=== PATIENT | female | born 1950 | race African-American/Black ===

== ENCOUNTER 2016-08-07 11:52 | Emergency (ER) | payer OTHER ==
[2016-08-07 11:59] VITALS: BP 148/79; PULSE 101; TEMP 97.5; BMI 28.3
[2016-08-07] MEDS ORDERED: IBUPROFEN 600 MG TABLET (FP) PO ONE ×2 (12:23→12:33)
--- NOTE | 2016-08-07 12:28 | PDOC ---
History of Present Illness - General Chief Complaint: Injury Stated Complaint: FALL/ HEAD INJURY, LT ELBOW, KNEE BRUISING Time Seen by Provider: 08/07/16 12:15 History Source: Patient Exam Limitations: No Limitations - History of Present Illness Initial Comments: 08/07/16 12:25 65 yr female states she tripped on the sidewalk yesterday and fell injuring left knee and left big toe. Pt states she hit her head on the wall no LOC. Pt saw her PMD yesterday. Pt denies headache no neck or back pain . Pt took tylenol for pain. no history of blood thinners. Occurred: reports: yesterday Severity: reports: mild Pain Location: reports: lower extremity Method of Injury: Yes: fall Modifying Factors: improves with: None Loss of Consciousness: no loss of consciousness Past History - Past Medical History Allergies/Adverse Reactions: Allergies Allergy/AdvReac Type Severity Reaction Status Date / Time Penicillins Allergy Verified 08/07/16 11:55 Hypercholesterolemia: Yes Seizures: Yes - Immunization History Immunization Up to Date: Yes - Psycho/Social/Smoking Cessation Hx Anxiety: No Suicidal Ideation: No Smoking History: Former smoker Have you smoked in the past 12 months: No Information on smoking cessation initiated: No Hx Alcohol Use: No Drug/Substance Use Hx: No Substance Use Type: None Trauma Specific PMHX - Complaint Specific PMHX Arthritis: No Back Injury: No Neck Injury: No Hx Sacro Iliac Joint Dysfunction: No Review of Systems - Review of Systems Able to Perform ROS?: Yes Is the patient limited Polish proficient: No Constitutional: No: Symptoms Reported Musculoskeletal: Yes: Symptoms Reported *Physical Exam - Vital Signs Last Vital Signs Temp Pulse Resp BP Pulse Ox 97.5 F L 101 H 20 148/79 98 08/07/16 11:56 08/07/16 11:56 08/07/16 11:56 08/07/16 11:56 08/07/16 11:56 - Physical Exam General Appearance: Yes: Nourished, Appropriately Dressed HEENT: positive: EOMI, PATI Neck: positive: Supple. negative: Tender Respiratory/Chest: positive: Lungs Clear, Normal Breath Sounds. negative: Chest Tender Cardiovascular: positive: Regular Rhythm, Regular Rate Gastrointestinal/Abdominal: positive: Normal Bowel Sounds, Soft Musculoskeletal: positive: Normal Inspection, Other (left knee with area of erythema to patella) Extremity: positive: Normal Capillary Refill, Tender (left knee with mild tenderness to palpation bony areas, left great toe with erythema, no deformtiy, FROM all joints ) Integumentary: positive: Normal Color, Dry, Warm Neurologic: positive: Fully Oriented, Alert, Normal Mood/Affect, Normal Response , Motor Strength / ED Treatment Course - RADIOLOGY Radiology Studies Ordered: Category Date Time Status FOOT-LEFT [RAD] Stat Radiology 08/07/16 12:24 Ordered KNEE 3 POS-LEFT [RAD] Stat Radiology 08/07/16 12:24 Ordered Medical Decision Making - Medical Decision Making 08/07/16 12:27 cc: trip and fall left knee pain, left toe injury will give motrin and get xray to r/o fx pt is ambulatory no acute distress. 08/07/16 12:42 *DC/Admit/Observation/Transfer Diagnosis at time of Disposition: Toe sprain Qualifiers: Encounter type: initial encounter Qualified Code(s): S93.509A - Unspecified sprain of unspecified toe(s), initial encounter Knee contusion Qualifiers: Encounter type: initial encounter Laterality: left Qualified Code(s): S80.02XA - Contusion of left knee, initial encounter - Discharge Dispostion Disposition: HOME - Referrals Referrals: Hyun Patel MD [Primary Care Provider] - Shlomo Reynolds MD [Staff Physician] - - Patient Instructions Additional Instructions: take motrin (over the counter advil, ibuprofen, motrin) for pain as needed follow with your medical doctor for follow up as needed follow with the orthopedist for follow up if symptoms worsen or persist use the hard sole shoe to ambulate as needed
== END 2016-08-07 13:25 | disposition home or self-care (01) ==
LOC: JERFT 11:52
DX: S93.512A Sprain of interphalangeal joint of left great toe, initial encounter (principal); S80.02XA Contusion of left knee, initial encounter; W01.0XXA Fall on same level from slipping, tripping and stumbling without subsequent striking against object, initial encounter; Y93.89 Activity, other specified; Y92.480 Sidewalk as the place of occurrence of the external cause; Y99.8 Other external cause status
CPT/HCPCS: 73562-TC-LT; 73630-TC-LT; 99281-25

== ENCOUNTER 2017-06-03 08:05 | Day surgery (SDC) | payer OTHER ==
[2017-06-02 09:19] VITALS: BMI 28.0
[~2017-06-03 08:05] MED LIST: ACETAMINOPHEN 325 MG TABLET (FP) PO PRN; CIPROFLOXACIN HCL 0.3% OPHTH 2.5ML BOTTLE OP SCH; CYCLOPENTOLATE HCL 1% OPHTH SOLN 2 ML BOTTLE OP SCH; FLURBIPROFEN 0.03% OPHTH SOLN 2.5 ML BOTTLE OP SCH; PHENYLEPHRINE 2.5% OPHTH SOLN 15 ML BOTTLE OP SCH; TROPICAMIDE 1% OPHTH SOLN 15 ML BOTTLE OP SCH
[2017-06-03] MEDS ORDERED: CYCLOPENTOLATE HCL 1% OPHTH SOLN 2 ML BOTTLE OD ONE ×3 (09:15→09:25)
[2017-06-03] MEDS ORDERED: TROPICAMIDE 1% OPHTH SOLN 15 ML BOTTLE OD ONE ×3 (09:15→09:25)
[2017-06-03] MEDS ORDERED: CIPROFLOXACIN HCL 0.3% OPHTH 2.5ML BOTTLE OD ONE ×3 (09:15→09:25)
[2017-06-03] MEDS ORDERED: PHENYLEPHRINE 2.5% OPHTH SOLN 15 ML BOTTLE OD ONE ×3 (09:15→09:25)
[2017-06-03 09:17] VITALS: TEMP 97.6
[2017-06-03] MEDS ORDERED: PHENYLEPHRINE 2.5% OPHTH SOLN 15 ML BOTTLE ONE (09:18)
[2017-06-03] MEDS ORDERED: CYCLOPENTOLATE HCL 1% OPHTH SOLN 2 ML BOTTLE ONE (09:18)
[2017-06-03] MEDS ORDERED: CIPROFLOXACIN 0.3% EYE DROPS 5 ML BOTTLE ONE (09:18)
[2017-06-03] MEDS ORDERED: TROPICAMIDE 1% OPHTH SOLN 15 ML BOTTLE ONE (09:18)
[2017-06-03] MEDS ORDERED: TETRACAINE 0.5% OPHTH SOLN 2 ML BOTTLE OD ONE (10:55)
[2017-06-03] MEDS ORDERED: LIDOCAINE HCL/PF 2% SDV 5ML VIAL INF ONE (11:15)
[2017-06-03] MEDS ORDERED: BUPIVACAINE HCL/PF 0.75% 10 ML VIAL RB ONE (11:15)
[2017-06-03] MEDS ORDERED: POVIDONE-IODINE 5% OPHTHALMIC PREP 30 ML SOLUTION OD ONE (11:16)
[2017-06-03] MEDS ORDERED: HYALURONATE SODIUM 14 MG/ML DISP.SYRIN IO ONE ×2 (11:25)
[2017-06-03] MEDS ORDERED: TRYPAN BLUE 0.5 ML DISP.SYRIN IO ONE (11:25)
[2017-06-03] MEDS ORDERED: BSS (NA/CA/MG/K) BALANCED SALT SOLUTION OPHTH SOLN 15 ML BOTTLE OD ONE (11:25)
[2017-06-03] MEDS ORDERED: CHONDROITIN SU A/HYALUR SOD 1 KIT IO ONE (11:25)
[2017-06-03] MEDS ORDERED: LIDOCAINE HCL 1% PRESERVATIVE FREE - 30ML VIAL IO ONE (11:25)
[2017-06-03] MEDS ORDERED: EPINEPHrine/PF 1 MG/1 ML (1:1,000) AMPULE IO ONE (11:37)
--- NOTE | 2017-06-03 12:47 | OP ---
DATE OF OPERATION: 06/03/2017 SURGEON: Armando Azul M.D. PREOPERATIVE DIAGNOSIS: Mature cataract, right eye. POSTOPERATIVE DIAGNOSIS: Mature cataract, right eye. OPERATION: Phacoemulsification of right cataract with capsular staining with trypan blue and posterior chamber intraocular lens implantation, the lens used [id number], 11.0 diopters, serial No. [id number]. ANESTHESIA: Peribulbar/modified Van Lint/MAC. COMPLICATIONS: None. PROCEDURE: The patient was brought into the operating room and correctly identified along with the operative site as well as the correct intraocular lens power. She was then given a peribulbar block under sedation with 5 mL of 1-to-1 mixture of 2% lidocaine and 0.75% bupivacaine. Then, 2 mL of the same mixture was given as a modified Van Lint. An eyelid speculum was then placed into the right eye. A completely white cataract was noted. A paracentesis port was created. Intracameral lidocaine was given approximately 0.5 mL. An air bubble was then placed into the anterior chamber, and the capsule stained with trypan blue beneath the air bubble. The trypan blue was then irrigated from the eye using the lidocaine as well as the viscoelastic. A temporal clear corneal wound was created. A continuous circular capsulorrhexis was then successfully performed. The nucleus was then hydro- dissected with BSS. The nucleus seemed to be soft with a significant cortical component noted. The I/A tip was inserted, and a fair amount of the cortex was then removed. However, there was a denser central nucleus was noted and was unable to be aspirated. Viscoat was placed beneath the nucleus to protect the posterior capsule, and using a vertical chopping technique, the nucleus was then disassembled and removed from the eye. The remaining cortical material was then irrigated and aspirated from the eye. Viscoelastic was injected to inflate the capsular bag. The lens was injected into the capsular bag, and viscoelastic was irrigated and aspirated. The eye was filled with BSS, and the wounds stromal hydrated. All wounds were then tested and found to be watertight. The intraocular lens was noted to be well centered and covered by the anterior capsular border. No suture was placed. Topical vancomycin given, and the eye patched and shielded, and the patient discharged from the operating room in a stable condition. ARMANDO AZUL M.D. /[id number] [id number]
[2017-06-03 13:18] VITALS: BP 152/65; PULSE 83
== END 2017-06-03 13:00 | disposition home or self-care (01) ==
LOC: JASU-SURG 08:05
PROVIDERS: ATTEND Ophthalmology
PROC: 08RJ3JZ Replacement of Right Lens with Synthetic Substitute, Percutaneous Approach (ICD-10-PCS; principal; 2017-06-03 11:00)
DX: H25.091 Other age-related incipient cataract, right eye (principal)

== ENCOUNTER 2017-06-24 07:49 | Day surgery (SDC) | payer OTHER ==
[2017-06-23 08:18] VITALS: BMI 28.0
[~2017-06-24 07:49] MED LIST changes: -CIPROFLOXACIN HCL 0.3% OPHTH 2.5ML BOTTLE OP SCH; +EPINEPHrine/PF 1 MG/1 ML (1:1,000) AMPULE IO ONE; -FLURBIPROFEN 0.03% OPHTH SOLN 2.5 ML BOTTLE OP SCH; -PHENYLEPHRINE 2.5% OPHTH SOLN 15 ML BOTTLE OP SCH; -TROPICAMIDE 1% OPHTH SOLN 15 ML BOTTLE OP SCH
[2017-06-24 08:09] VITALS: TEMP 97.8
[2017-06-24] MEDS ORDERED: FLURBIPROFEN 0.03% OPHTH SOLN 2.5 ML BOTTLE ONE (08:23)
[2017-06-24] MEDS ORDERED: TROPICAMIDE 1% OPHTH SOLN 15 ML BOTTLE ONE (08:23)
[2017-06-24] MEDS ORDERED: PHENYLEPHRINE 2.5% OPHTH SOLN 15 ML BOTTLE ONE (08:23)
[2017-06-24] MEDS ORDERED: CIPROFLOXACIN 0.3% EYE DROPS 5 ML BOTTLE ONE (08:23)
[2017-06-24] MEDS ORDERED: CYCLOPENTOLATE HCL 1% OPHTH SOLN 2 ML BOTTLE ONE (08:23)
[2017-06-24] MEDS: CIPROFLOXACIN HCL 0.3% OPHTH 2.5ML BOTTLE OP SCH ×2 (08:30→08:40)
[2017-06-24] MEDS: FLURBIPROFEN 0.03% OPHTH SOLN 2.5 ML BOTTLE OP SCH ×2 (08:30→08:40)
[2017-06-24] MEDS: PHENYLEPHRINE 2.5% OPHTH SOLN 15 ML BOTTLE OP SCH ×2 (08:30→08:40)
[2017-06-24] MEDS: TROPICAMIDE 1% OPHTH SOLN 15 ML BOTTLE OP SCH ×2 (08:30→08:40)
[2017-06-24] MEDS ORDERED: LIDOCAINE HCL/PF 2% SDV 5ML VIAL ONE (09:06)
[2017-06-24] MEDS ORDERED: PROPOFOL 20 ML ONE (09:07)
[2017-06-24] MEDS ORDERED: LIDOCAINE HCL/PF 2% SDV 5ML VIAL INF ONE (09:17)
[2017-06-24] MEDS ORDERED: BUPIVACAINE HCL/PF 0.75% 10 ML VIAL RB ONE (09:17)
[2017-06-24] MEDS ORDERED: POVIDONE-IODINE 5% OPHTHALMIC PREP 30 ML SOLUTION OS ONE (09:19)
[2017-06-24] MEDS ORDERED: HYALURONATE SODIUM 14 MG/ML DISP.SYRIN IO ONE (09:26)
[2017-06-24] MEDS ORDERED: BSS (NA/CA/MG/K) BALANCED SALT SOLUTION OPHTH SOLN 15 ML BOTTLE OS ONE (09:26)
[2017-06-24] MEDS ORDERED: LIDOCAINE HCL 1% PRESERVATIVE FREE - 30ML VIAL IO ONE (09:26)
[2017-06-24] MEDS ORDERED: CHONDROITIN SU A/HYALUR SOD 1 KIT IO ONE ×2 (09:26)
[2017-06-24] MEDS ORDERED: TRYPAN BLUE 0.5 ML DISP.SYRIN IO ONE (09:26)
[2017-06-24] MEDS ORDERED: EPINEPHrine/PF 1 MG/1 ML (1:1,000) AMPULE IO ONE (09:52)
[2017-06-24 12:50] VITALS: BP 125/67; PULSE 85
--- NOTE | 2017-06-25 10:58 | OP ---
DATE OF OPERATION: 06/24/2017 SURGEON: Armando Azul M.D. PREOPERATIVE DIAGNOSIS: Mature cataract, left eye. POSTOPERATIVE DIAGNOSIS: Mature cataract, left eye. OPERATION: Phacoemulsification of left cataract with capsular staining with trypan blue and posterior chamber intraocular lens implantation, lens used [id number], 11.5 diopter power, serial No. [id number]. ANESTHESIA: Topical MAC. COMPLICATIONS: None. PROCEDURE: The patient was brought into the operating room and correctly identified along with the operative site and correct intraocular lens power. She was then given a peribulbar block under sedation with 5 mL of 1-to-1 mixture of 2% lidocaine and 0.75% bupivacaine. Then, 2 mL of the same mixture was given as a modified Van Lint. The eye was then prepped and draped in the usual sterile fashion including 5% Betadine solution in the conjunctival sac and an eyelid drape. An eyelid speculum was then placed into the left eye. The cataract was inspected, and a mature white cataract was noted. There was some crinkling in the anterior capsule noted superiorly, as well. A paracentesis port was created, and intracameral lidocaine given as well as an air bubble. Beneath the air bubble, the capsule was then stained with trypan blue. Viscoelastic was placed in a soft-shell technique using Healon GV and Viscoat in the anterior chamber, and a temporal clear corneal wound created. A cystotome was then used to initiate the capsulorrhexis temporally, and capsulorrhexis was begun. However, at the superior fold, there was a dense cortical cataract that was noted to be adhered to the anterior capsule. This cortical cataract extended peripherally, so it was not possible to separate the cortex from the nucleus to complete the anterior capsulorrhexis safely. were used, using Viscoat to try to separate the cortex as well as using multiple attempts at pulling . However, the peripheral cataract was noted to pull, as well. There was a question of zonular dehiscence in the area, as well. Vannas scissors as well as Gills scissors were then used to attempt to cut the area of the adhesion. Multiple attempts were made at this. Finally, decision was made to reinitiate the capsulorrhexis superotemporally in the other direction, and the capsule was pulled. The capsulorrhexis seemed to be complete. However, there was still noted to be fusion with the dense cortical material as well as with the peripheral cataract. The nucleus was then hydro-dissected with BSS, and phacoemulsification probe was used in an attempt to break up the cortical material. This was performed carefully in an effort to prevent any pulling on the nucleus. The nucleus was then broken up with phacoemulsification and removed from the eye using a combination of vertical and horizontal chopping as well as cracking. The anterior capsulorrhexis was actually noted to be intact. Viscoelastic was then injected to inflate the capsular bag. There was no significant cortical material. The lens was the injected into the capsular bag, and the viscoelastic was then irrigated and aspirated from the eye. The intraocular lens was then noted to be well centered and covered by the anterior capsular border. There was no sign of any zonular dehiscence. All wounds were tested and found to be watertight. No suture was placed. Topical vancomycin given, the eye patched and shielded, and the patient discharged from the operating room in a stable condition. ARMANDO AZUL M.D. [id number]
== END 2017-06-24 11:00 | disposition home or self-care (01) ==
LOC: JASU-SURG 07:49
PROVIDERS: ATTEND Ophthalmology
PROC: 08RK3JZ Replacement of Left Lens with Synthetic Substitute, Percutaneous Approach (ICD-10-PCS; principal; 2017-06-24 11:00)
DX: H25.092 Other age-related incipient cataract, left eye (principal); H11 Other disorders of conjunctiva

== ENCOUNTER 2018-03-20 13:04 | Emergency (ER) | payer OTHER ==
[2018-03-20 13:09] VITALS: BP 130/61; PULSE 100; TEMP 98; BMI 30.1
[2018-03-20] MEDS ORDERED: IBUPROFEN 400 MG TABLET (FP) PO ONE ×2 (13:38→13:40)
--- NOTE | 2018-03-20 13:38 | PDOC ---
History of Present Illness - General Chief Complaint: Injury Stated Complaint: FALL, INJURY Time Seen by Provider: 03/20/18 13:11 History Source: Patient Exam Limitations: No Limitations Past History - Travel Traveled outside of the country in the last 30 days: No Close contact w/someone who was outside of country & ill: No - Past Medical History Allergies/Adverse Reactions: Allergies Allergy/AdvReac Type Severity Reaction Status Date / Time Penicillins Allergy Verified 03/20/18 13:09 Home Medications: Ambulatory Orders Atorvastatin Ca [Lipitor] 20 mg PO DAILY 06/02/17 Divalproex Sodium [Depakote] 250 mg PO BID 06/02/17 Gabapentin [Neurontin -] 100 mg PO DAILY 06/02/17 levETIRAcetam [Keppra -] 500 mg PO BID 06/02/17 Ergocalciferol [Vitamin D2] 50,000 unit PO Q7D@1000 12/03/17 Anemia: No Asthma: No Cancer: No Cardiac Disorders: No CVA: No COPD: No CHF: No Dementia: No Diabetes: Yes (prediabetes) GI Disorders: No Disorders: No HTN: No Hypercholesterolemia: Yes Liver Disease: No Seizures: Yes (on meds) Thyroid Disease: No - Surgical History Abdominal Surgery: No Appendectomy: No Cardiac Surgery: No Cholecystectomy: No Lung Surgery: No Neurologic Surgery: Yes (brain surgery 1997 for seizuers at [facility]) Orthopedic Surgery: No - Immunization History Immunization Up to Date: Yes - Suicide/Smoking/Psychosocial Hx Smoking History: Former smoker Have you smoked in the past 12 months: No If you are a former smoker, when did you quit?: 6 YRS AGO Information on smoking cessation initiated: No Hx Alcohol Use: No Drug/Substance Use Hx: No Substance Use Type: None Hx Substance Use Treatment: No Review of Systems - Review of Systems Able to Perform ROS?: Yes Comments:: 03/20/18 13:37 CONSTITUTIONAL: Absent: fever, chills, diaphoresis, generalized weakness, malaise, loss of appetite HEENT: Absent: rhinorrhea, nasal congestion, throat pain, throat swelling, difficulty swallowing, mouth swelling, ear pain, eye pain, visual Changes CARDIOVASCULAR: Absent: chest pain, loss of consciousness, palpitations, irregular heart rate, peripheral edema RESPIRATORY: Absent: cough, shortness of breath, dyspnea with exertion, orthopnea, wheezing, stridor, hemoptysis GASTROINTESTINAL: Absent: abdominal pain, abdominal distension, nausea, vomiting, diarrhea, constipation, melena, hematochezia GENITOURINARY: Absent: dysuria, frequency, urgency, hesitancy, hematuria, flank pain, genital pain MUSCULOSKELETAL: Absent: myalgia, arthralgia, joint swelling SKIN: Absent: rash, itching, pallor HEMATOLOGIC/IMMUNOLOGIC: Absent: easy bleeding, easy bruising, lymphadenopathy, frequent infections ENDOCRINE: Absent: unexplained weight gain, unexplained weight loss, heat intolerance, cold intolerance NEUROLOGIC: Absent: headache, focal weakness or paresthesias, dizziness, unsteady gait, seizure, mental status changes, bladder or bowel incontinence PSYCHIATRIC: Absent: anxiety, depression, suicidal or homicidal ideation, hallucinations. Is the patient limited Croatian proficient: No *Physical Exam - Vital Signs Last Vital Signs Temp Pulse Resp BP Pulse Ox 98 F 100 H 18 130/61 98 03/20/18 13:06 03/20/18 13:06 03/20/18 13:06 03/20/18 13:06 03/20/18 13:06 - Physical Exam Comments: 03/20/18 13:38 GENERAL: Well developed, well nourished. Awake and alert. No acute distress. HEENT: Normocephalic, atraumatic. PERRLA, EOMI. No conjunctival pallor. Sclera are non- icteric. Moist mucous membranes. Oropharynx is clear. NECK: Supple. Full ROM. No JVD. Carotid pulses 2+ and symmetric, without bruits. No thyromegaly. No lymphadenopathy. CARDIOVASCULAR: Regular rate and rhythm. No murmurs, rubs, or gallops. Distal pulses are 2+ and symmetric. PULMONARY: No evidence of respiratory distress. Lungs clear to auscultation bilaterally. No wheezing, rales or rhonchi. ABDOMINAL: Soft. Non-tender. Non-distended. No rebound or guarding. No organomegaly. Normoactive bowel sounds. MUSCULOSKELETAL Normal range of motion at all joints. No bony deformities or tenderness. No CVA tenderness. EXTREMITIES: No cyanosis. No clubbing. No edema. No calf tenderness. SKIN: Warm and dry. Normal capillary refill. No rashes. No jaundice. NEUROLOGICAL: Alert, awake, appropriate. Cranial nerves 2-12 intact. No deficits to light touch and temperature in face, upper extremities and lower extremities. No motor deficits in the in face, upper extremities and lower extremities. Normoreflexic in the upper and lower extremities. Normal speech. Toes are down- going bilaterally. Gait is normal without ataxia. PSYCHIATRIC: Cooperative. Good eye contact. Appropriate mood and affect. *DC/Admit/Observation/Transfer Diagnosis at time of Disposition: Knee pain, right Qualifiers: Chronicity: acute Qualified Code(s): M25.561 - Pain in right knee - Discharge Dispostion Disposition: HOME Condition at time of disposition: Stable Decision to Admit order: No - Referrals - Patient Instructions Printed Discharge Instructions: DI for Knee Effusion Additional Instructions: You have knee swelling and pain after falling Your x-ray is negative for fractures at this time You may take ibuprofen 800mg every 8 hours as needed for pain Please wear the yael wrap to help reduce swelling Ice the area for 20 minute intervals Keep the leg elevated when resting Follow up with orthopedics this week Return to the ED if you have new or worsening pain - Post Discharge Activity Forms/Work/School Notes: Back to Work
== END 2018-03-20 14:43 | disposition home or self-care (01) ==
LOC: JERFT 13:04
DX: M25.561 Pain in right knee (principal); M54.5 Low back pain; W19.XXXA Unspecified fall, initial encounter; Y93.89 Activity, other specified; Y92.89 Other specified places as the place of occurrence of the external cause; Y99.8 Other external cause status; G40.909 Epilepsy, unspecified, not intractable, without status epilepticus; R73.03 Prediabetes; E78.00 Pure hypercholesterolemia, unspecified; Z87.891 Personal history of nicotine dependence
CPT/HCPCS: 73562-TC-RT-FY; 99281-25